=== PATIENT | male | born 1995 | race Asian ===

== ENCOUNTER 2024-12-24 08:58 | Emergency (ER) | payer SELFPAY ==
[~2024-12-24] VITALS: Ht 162.6 cm; Wt 71.2 kg
[2024-12-24 09:16] VITALS: TEMP 98.2
[2024-12-24 09:33] LABS: PLATELET COUNT (AUTO) 240 K/uL (150-450); RED BLOOD CELL COUNT(AUTO) 6.05 MIL/uL (4.5-6.0); RED CELL DISTRIBUTION WIDTH 13.4 % (11.5-15.0); WHITE BLOOD COUNT (AUTO) 8.8 K/uL (4.3-11.0)
[2024-12-24 09:47] LABS: ASPARTATE AMINOTRANSFERASE 21 U/L (15-37); CALCIUM, SERUM 9.6 mg/dL (8.5-10.1); CREATININE 1.2 mg/dL (0.6-1.3); SODIUM SERUM 139 mmol/L (136-145); TOTAL PROTEIN, SERUM 8.4 g/dL (6.4-8.2); UREA NITROGEN, BLOOD 8 mg/dL (7-18)
[2024-12-24 09:48] LABS: ALCOHOL, BLOOD < 3 mg/dL (0-10)
[2024-12-24 10:53] LABS: APPEARANCE,URINE CLEAR (CLEAR); BLOOD, URINE NEGATIVE Ery/uL (NEGATIVE); LEUKOCYTE ESTERASE ,URINE NEGATIVE (NEGATIVE); NITRITE, URINE NEGATIVE (NEGATIVE); UGLUCOSE NEGATIVE (NEGATIVE)
[2024-12-24 10:59] LABS: ADD URINE CULTURE NO; SQUAMOUS EPITHELIAL CELL,UR Rare /HPF (None Seen)
[2024-12-24 11:42] LABS: AMPHETAMINE, URINE NEGATIVE (NEGATIVE); BARBITURATE, URINE NEGATIVE (NEGATIVE); BENZODIAZEPINE, URINE NEGATIVE (NEGATIVE); CANNABINOID, URINE NEGATIVE (NEGATIVE); OPIATE, URINE NEGATIVE (NEGATIVE)
[2024-12-24 11:43] LABS: COCCAINE, URINE POSITIVE (NEGATIVE)
[2024-12-24 14:25] VITALS: BP 128/79; O2SAT 98
== END 2024-12-24 14:26 | disposition home or self-care (01) ==
LOC: ER 09:07
DX: F32.A Depression, unspecified (principal); R45.851 Suicidal ideations; F14.10 Cocaine abuse, uncomplicated; R11.0 Nausea; Z79.899 Other long term (current) drug therapy; Z20.822 Contact with and (suspected) exposure to COVID-19
CPT/HCPCS: 36415; 80048-TC; 80076-TC; 81001; 82140-TC; 82962-TC; 84443-TC; 85025-TC; G0480